=== PATIENT | male | born 1935 | race Caucasian/White ===

== ENCOUNTER 2016-09-11 00:13 | Inpatient (IN) | payer MEDICARE, OTHER ==
[~2016-09-11] VITALS: Ht 177.8 cm; Wt 64.6 kg
[2016-09-11 00:46] LABS: APPEARANCE HAZY (CLEAR); BACTERIA FEW /hpf (NONE SEEN); BILIRUBIN NEGATIVE (NEGATIVE); COLOR YELLOW (YELLOW); EPITHELIAL CELLS NSEEN /hpf (0-5); GLUCOSE NEGATIVE (NEGATIVE); KETONE NEGATIVE (NEGATIVE); LEUKOCYTE ESTERASE 1+ (NEGATIVE); NITRITE POSITIVE (NEGATIVE); PROTEIN TRACE mg/dL (NEGATIVE); UROBILINOGEN NORMAL (NORMAL)
[2016-09-11 00:46] LABS: BASOPHILS 0.1 % (0.0-2.0); EOSINOPHILS 0.5 % (0-7); HEMATOCRIT 38.6 % (42.0-54.0); HEMOGLOBIN 12.6 g/dL (13.5-17.5); IMMATURE GRANULOCYTES 0.2 % (0-5); LYMPHOCYTES 18.2 % (15-50); MCH 30.9 pg (26.0-34.0); MCHC 32.6 g/dL (31.0-37.0); MCV 94.6 fL (80.0-100.0); MEAN PLATELET VOLUME 10.4 fL (7.4-10.4); MONOCYTES 8.9 % (2-11); NEUTROPHILS 72.1 % (40-80); PLATELET COUNT 132 10x3/uL (130-400); RBC 4.08 10x6/uL (4.20-6.10); RDW 13.4 % (11.5-14.5); WBC 9.2 10x3/uL (4.8-10.8)
[2016-09-11 00:58] LABS: ALBUMIN 2.9 g/dL (3.4-5.0); ALKALINE PHOSPHATASE 158 U/L (46-116); ALT (SGPT) 47 U/L (10-68); CALC OSMOLALITY 281 mosm/kg (275-300); CALCIUM 8.3 mg/dL (8.5-10.1); CHLORIDE - SERUM 105 mmol/L (98-107); CREATININE - SERUM 0.9 mg/dL (0.6-1.3); POTASSIUM - SERUM 3.4 mmol/L (3.5-5.1); PROTEIN - SERUM 6.6 g/dL (6.4-8.2); SODIUM 139 mmol/L (136-145); UREA NITROGEN 19 mg/dL (7-18); eGFR NON AFRICAN AMERICAN 86 mL/min (90-120)
[2016-09-11 01:04] LABS: GLUCOSE 137 mg/dL (74-106)
[2016-09-11 01:10] LABS: AMYLASE - SERUM 199 U/L (25-115); LIPASE 1815 U/L (73-393); PRO BNP 96 pg/mL (0-450); TROPONIN-I < 0.017 ng/mL (0.000-0.060)
[2016-09-11] MEDS ORDERED: CENTRUM COMPLE1 EACH PO (04:57)
[2016-09-11] MEDS ORDERED: BAYER CHEWABLE81 MG PO (04:58)
[2016-09-11] MEDS ORDERED: LESCOL40 MG PO (04:58)
[2016-09-11] MEDS ORDERED: LEVOXYL75 MCG PO (04:58)
[2016-09-11] MEDS ORDERED: MIRALAX17 GM PO (04:59)
[2016-09-11] MEDS ORDERED: PROBIOTIC1 EAC1 PO ×3 (04:59→05:00)
[2016-09-11] MEDS ORDERED: CRANBERRY 400 M1 TA1 PO (05:11)
[2016-09-11] MEDS ORDERED: ZPAK PO (05:11)
--- NOTE | 2016-09-11 05:13 | NUR ---
RECEIVED TO 2132 FROM ER VIA WHEELCHAIR, AAOX3, SKIN WARM AND DRY, RESP UNLABORED, IV PATENT TO RIGHT AC, AT BEDSIDE, DENIES NEEDS AT THIS TIME
[2016-09-11 05:15] VITALS: BP 146/62; BMI 20.8
--- NOTE | 2016-09-11 06:45 | NUR ---
RESTING QUEITLY IN BED, NO DISTRESS NOTED
[2016-09-11 08:13] VITALS: BP 130/77
[2016-09-11 12:43] VITALS: BP 179/89
[2016-09-11 16:00] VITALS: BP 154/74
--- NOTE | 2016-09-11 19:49 | NUR ---
RESUMED CARE OF PT, LYING IN BED RESPIRATIONS EVEN AND UNLABORED ON ROOM AIR. 68 SR ON TELEMETRY. FAMILY AT BEDSIDE, CALL LIGHT IN REACH. WILL CONTINUE TO MONITOR. SEE NURSE ASSESSMENT.
[2016-09-11 21:24] VITALS: BP 131/65
[2016-09-12 00:30] VITALS: BP 117/59
--- NOTE | 2016-09-12 01:34 | NUR ---
CRUDE OIL TREATER AT BEDSIDE TO OBTAIN VITALS, CALL LIGHT IN REACH. WILL CONTINUE WITH PLAN OF CARE.
[2016-09-12 04:30] VITALS: BP 131/67
--- NOTE | 2016-09-12 06:44 | NUR ---
NO CHANGES FROM PREVIOUS ASSESSMENT, CALL LIGHT IN REACH.
[2016-09-12 08:32] VITALS: BP 117/63
[2016-09-12 09:16] LABS: LIPASE 171 U/L (73-393)
[2016-09-12 09:17] LABS: AMYLASE - SERUM 83 U/L (25-115)
[2016-09-12 12:30] VITALS: BP 142/78
[2016-09-12 13:30] VITALS: Ht 177.8 cm; Wt 64.6 kg
[2016-09-12 16:44] VITALS: BP 133/75
--- NOTE | 2016-09-12 18:07 | NUR ---
ALERT AND ORIENTED X4. SITTING UP ON SIDE OF BED. ULTRASOUND COMPLETE. REORDER DIET. TYLENOL GIVEN FOR HEADACHE ORDERED. DENIES NAUSEA AND VOMITING. SINUS RHYTHM 68bpm ON TELEMETRY. CONTINUE PLAN OF CARE AND SAFETY PRECAUTIONS.
--- NOTE | 2016-09-12 19:30 | NUR ---
ASSESSMENT COMPLETE, DENIES NEEDS AT THIS TIME. HOB UP SR UP X2, C/L IN REACH. VISITOR AT BEDSIDE. UP AD REKHA W/O DIFF. UROSTOMY NOTED, EMPTIED, DRAINED PER PATIENT. CONTINUE TO MONITOR.
[2016-09-12 20:36] VITALS: BP 111/61
[2016-09-13 01:19] VITALS: BP 123/69
[2016-09-13 05:06] VITALS: BP 117/67
--- NOTE | 2016-09-13 07:30 | NUR ---
RECEIVED PT SITTING IN CHAIR DENIES ANY NEEDS OR DISCOMFORT NAD NOTED WILL CONTINUE TO MONITOR
--- NOTE | 2016-09-13 07:33 | NUR ---
SITTING ON SIDE OF BED, AWAKE ALERT VOICES NO C/O PAIN OR DISCOMFORT AT THIS TIME. REMAINS SR PER AGENT PRODUCER. C/L IN REACH, CONTINUE TO MONITOR.
[2016-09-13 08:12] VITALS: BP 122/55
--- NOTE | 2016-09-13 08:29 | NUR ---
FSBS 69 NO COVERAGE PT STATES NOT DIABETIC
[2016-09-13 12:14] VITALS: BP 146/66
[2016-09-13] MEDS ORDERED: CIPRO250 MG PO (13:25)
--- NOTE | 2016-09-13 14:25 | NUR ---
Patient Name: ELIZ MCFADDEN Admission Status: ER Accout number: [id number] Admission Date: 09-11-2016 : 1935 Admission Diagnosis:VOMITING, UNSPECIFIED Attending: ARLEY Current LOS: 2 Anticipated DC Date: 09-13-2016 Planned Disposition: Home Primary Insurance: MEDICARE A & B Discharge Planning Comments: * Is the patient Alert and Oriented? Yes 0 * How many steps to enter\exit or inside your home? NONE 0 * PCP DR. STEWARD 0 * Pharmacy [facility] 0 * Preadmission Environment Home with Family 0 * ADLs Independent 0 * Equipment None 0 * Other Equipment NO MEDICAL EQUIPMENT PROVIDER PREFERENCE 0 * List name and contact numbers for known caregivers / representatives who currently or will assist patient after discharge: EMILI MCFADDEN, SPOUSE, 0 * Community resources currently utilized None 0 * Please name any agencies selected above. NONE 0 * Additional services required to return to the preadmission environment? No 0 * Can the patient safely return to the preadmission environment? Yes 0 * Has this patient been hospitalized within the prior 30 days at any hospital? No 0 CM MET WITH PT IN ROOM TO DISCUSS DISCHARGE PLANNING AND NEEDS. PT REPORTS LIVING AT HOME INDEPENDENTLY WITH HIS SPOUSE. PT HAS NO MEDICAL EQUIPMENT AND NO OUTSIDE SERVICES ASSISTING IN THE HOME. CM DISCUSSED AVAILABILITY OF HOME HEALTH, REHAB SERVICES AND MEDICAL EQUIPMENT. PT DENIES DISCHARGE NEEDS, REPORTS HIS SPOUSE IS HERE TO PICK HIM UP FOR DISCHARGE HOME. IMPORTANT MESSAGE FROM MEDICARE PROVIDED AND EXPLAINED. Parts Identification Technician: Johan Mendoza
--- NOTE | 2016-09-13 15:15 | NUR ---
SALINE LOCK DCD TO RT ARM WITH 20 GA IV CATH INTACT NO REDNESS OR EDEMA AT SITE REVIEWED DISCHARGE INSTRUCTIONS PT AND STATE UNDERSTANDING COPY GIVEN PT DISCHARGED HOME LEFT UNIT WITH ALL PERSONAL BELONGINGS IN STABLE CONDITION VIA W/C
== END 2016-09-13 15:15 | disposition home or self-care (01) | DRG 439 ==
LOC: D.ER 00:13 → D.M2 03:46
PROVIDERS: Family Medicine; ADMIT Family Medicine
DX: K85.90 Acute pancreatitis without necrosis or infection, unspecified (principal); N39.0 Urinary tract infection, site not specified; E03.9 Hypothyroidism, unspecified

== ENCOUNTER → 2018-02-15 07:29 | Outpatient (CLI) | payer MEDICARE, OTHER ==
[2016-09-12 13:30] VITALS: BMI 20.8
[~2018-02-15 07:29] MED LIST: BAYER CHEWABLE81 MG PO; CENTRUM COMPLE1 EACH PO; CIPRO250 MG PO; CRANBERRY 400 M1 TA1 PO; LESCOL40 MG PO; LEVOXYL75 MCG PO; MIRALAX17 GM PO; PROBIOTIC1 EAC1 PO; ZPAK PO
== END | disposition home or self-care (01) ==
LOC: D.US 07:29
DX: R79.89 Other specified abnormal findings of blood chemistry (principal)

== ENCOUNTER → 2018-02-22 07:38 | Outpatient (CLI) | payer MEDICARE, OTHER ==
[2016-09-12 13:30] VITALS: BMI 20.8
== END | disposition home or self-care (01) ==
LOC: D.MRI 07:38
DX: K76.9 Liver disease, unspecified (principal); K80.80 Other cholelithiasis without obstruction